=== PATIENT | female | born 1995 | race Caucasian/White ===

== ENCOUNTER 2016-06-05 23:21 | Emergency (ER) | payer OTHER ==
[~2016-06-05] VITALS: Ht 172.7 cm; Wt 104.8 kg
[~2016-06-05 23:21] MED LIST: ASCORBIC ACID500 M3 PO; AUGMENTIN875 MG PO; BENZONATATE200 MG; CLONIDINE; DESYREL12.5 MG; DIMETAPP DM CO PO; DOCUSATE SODIU100 MG PO; DOXYCYCLINE HY100 MG PO; DOXYCYCLINE MO100 M1 PO; FERROUS SULFAT325 MG PO; FLAGYL500 MG PO; FOCALIN XR20 MG; FOCALIN XR40 MG PO; GUAIFENESI100 MG/5 M PO; HYCODAN SYRUP480 ML PO; HYDROCODON-ACE1 EAC7 PO; IBUPROFEN800 MG PO; INTUNIV1 MG PO; INTUNIV3 MG; INTUNIV4 MG PO; MACROBID100 MG PO; MELATONIN3 MG PO; MIRTAZAPINE15 MG; MOBIC7.5 MG PO; MONISTAT 744 GM VG; MOTRIN800 MG PO; NAPROSYN500 MG PO; OXYCODONE-APAP1 EACH PO; PERCOCET 5/31 TABLET PO; POLYETHYLENE GL17 GM PO; PRENATAL TABLE1 EAC3 PO; PSEUDOEPHEDRINE30 MG PO; REMERON30 M2 PO; SINGULAIR10 MG PO; TAMIFLU75 MG PO; TRAMADOL HCL50 MG PO; TRAZODONE HCL50 MG PO; ULTRAM50 MG PO; ZANTAC150 MG PO; ZITHROMAX Z-PA250 MG PO; ZOFRAN4 MG PO
[2016-06-06 00:47] LABS: HEMATOCRIT 36.9 % (36.0-46.0); MCH 27.5 PG (29.0-34.0); MCHC 33.1 G/DL (30.0-36.0); MCV 83.1 FL (83-99); MEAN PLAT.VOLUME 10.3 uM^3 (9.5-12.4); PLATELET COUNT 257 K/uL (156-360); RBC DIS.WIDTH-CV 14.3 % (11.8-14.6); RBC DIS.WIDTH-SD 42.8 % (39-53); RED BLOOD COUNT 4.44 M/uL (3.80-5.20)
[2016-06-06 00:59] LABS: CHLORIDE 109 mEq/L (99-109); POTASSIUM 3.4 mEq/L (3.7-5.4); SODIUM 141 mEq/L (136-147)
[2016-06-06 01:01] LABS: GLUCOSE 99 mg/dL (70-99)
[2016-06-06 01:03] LABS: ANION GAP 7 MEQ/L (2-14); TOTAL BILIRUBIN 0.4 mg/dL (0.0-1.0)
[2016-06-06 01:05] LABS: ALKALINE PHOSPHATASE 76 IU/L (3-129); GFR ESTIMATE (CALCULATED) > 59 mL/min/
[2016-06-06 01:06] LABS: UREA NITROGEN (BUN) 9 mg/dL (9-23)
[2016-06-06 01:14] LABS: QUANTITATIVE HCG < 4.0 MIU/ML
[2016-06-06 02:04] LABS: ADD MIUA? YES; BILIRUBIN NEGATIVE; BLOOD LARGE; COLOR YELLOW ((YELLOW)); GLUCOSE (STRIP) NEGATIVE; KETONES NEGATIVE; LEUKOCYTES NEGATIVE; NITRITE NEGATIVE; PROTEIN (STRIP) TRACE; SPECIFIC GRAVITY 1.041 (1.000-1.030); UROBILINOGEN 0.2 MG/DL (0.2-1.0)
[2016-06-06 02:26] LABS: EPITHELIAL CELLS 1+ /HPF; MUCUS NONE SEEN /LPF; RED BLOOD CELLS 0-5 /HPF (0-5); WHITE BLOOD CELLS 0-5 /HPF (0-5)
[2016-06-06 02:27] LABS: BACTERIA 1+ /HPF; CASTS NONE SEEN /LPF; CRYSTALS NONE SEEN; UCUL ADDED? NO
[2016-06-06] MEDS ORDERED: BENTYL20 MG PO (02:42)
[2016-06-06 02:47] VITALS: BP 130/75
== END 2016-06-06 02:47 | disposition home or self-care (01) ==
LOC: EME 23:21 → RME 23:21
PROVIDERS: Nurse Practitioner Family
DX: R10.30 Lower abdominal pain, unspecified (principal); R11.2 Nausea with vomiting, unspecified; R19.7 Diarrhea, unspecified
CPT/HCPCS: 76856; 80053; 81003; 84702; 85027; 99281; 99285; J0500

== ENCOUNTER → 2016-08-20 | Emergency (ER) | payer OTHER ==
[~2016-08-20] VITALS: Ht 172.7 cm; Wt 103.2 kg
[~2016-08-20] MED LIST changes: +BENTYL20 MG PO
[2016-08-20 22:06] VITALS: BP 121/94
== END | disposition left against medical advice (07) ==
LOC: EME 22:00
DX: L29.9 Pruritus, unspecified (principal); R23.8 Other skin changes; Z53.21 Procedure and treatment not carried out due to patient leaving prior to being seen by health care provider
CPT/HCPCS: 99281; 99282

== ENCOUNTER 2016-10-30 14:37 | Emergency (ER) | payer OTHER ==
[~2016-10-30] VITALS: Ht 172.7 cm; Wt 102.6 kg
[2016-10-30 15:13] LABS: HEMATOCRIT 39.9 % (36.0-46.0); MCH 28.5 PG (29.0-34.0); MCHC 33.3 G/DL (30.0-36.0); MCV 85.6 FL (83-99); MEAN PLAT.VOLUME 10.3 uM^3 (9.5-12.4); PLATELET COUNT 286 K/uL (156-360); RBC DIS.WIDTH-CV 13.8 % (11.8-14.6); RBC DIS.WIDTH-SD 42.6 % (39-53); RED BLOOD COUNT 4.66 M/uL (3.80-5.20)
[2016-10-30 15:21] LABS: CHLORIDE 108 mEq/L (99-109); POTASSIUM 3.8 mEq/L (3.7-5.4); SODIUM 139 mEq/L (136-147)
[2016-10-30 15:24] LABS: GLUCOSE 91 mg/dL (70-99)
[2016-10-30 15:25] LABS: ANION GAP 9 MEQ/L (2-14); TOTAL BILIRUBIN 0.6 mg/dL (0.0-1.0)
[2016-10-30 15:26] LABS: SERUM ETHYL ALCOHOL < 10 mg/dL
[2016-10-30 15:27] LABS: ALKALINE PHOSPHATASE 70 IU/L (3-129); GFR ESTIMATE (CALCULATED) > 59 mL/min/
[2016-10-30 15:28] LABS: UREA NITROGEN (BUN) 9 mg/dL (9-23)
[2016-10-30 15:59] LABS: ADD MIUA? YES; BILIRUBIN NEGATIVE; BLOOD NEGATIVE; COLOR YELLOW ((YELLOW)); GLUCOSE (STRIP) NEGATIVE; KETONES NEGATIVE; LEUKOCYTES NEGATIVE; NITRITE NEGATIVE; PROTEIN (STRIP) NEGATIVE; SPECIFIC GRAVITY 1.019 (1.000-1.030); UROBILINOGEN 0.2 MG/DL (0.2-1.0)
[2016-10-30 16:02] LABS: BACTERIA RARE /HPF; EPITHELIAL CELLS 1+ /HPF; MUCUS TRACE /LPF; RED BLOOD CELLS 0-5 /HPF (0-5); WHITE BLOOD CELLS 0-5 /HPF (0-5)
[2016-10-30 16:11] LABS: AMPHETAMINE NEGATIVE (500 ng/mL); BARBITURATES NEGATIVE (200 ng/mL); BENZODIAZEPINES NEGATIVE (150 ng/mL); COCAINE NEGATIVE (150 ng/mL); INTERNAL CONTROLS VALID? YES; METHADONE NEGATIVE (200 ng/mL); METHAMPHETAMINE NEGATIVE (500 ng/mL); OPIATES (MORPHINE) NEGATIVE (100 ng/mL); OXYCODONE NEGATIVE (100 ng/mL); PHENCYCLIDINE NEGATIVE (25 ng/mL); PROPOXYPHENE NEGATIVE (300 ng/mL); THC CANNABINOIDS NEGATIVE (50 ng/mL); TRICYCLIC ANTIDEPRESSANTS NEGATIVE (300 ng/mL)
[2016-10-30 16:13] LABS: QUANTITATIVE HCG 471.8 MIU/ML
[2016-10-30 16:30] VITALS: BP 156/93
== END 2016-10-30 16:30 | disposition home or self-care (01) ==
LOC: EME 14:37
PROVIDERS: Emergency Medicine
DX: F32.9 Major depressive disorder, single episode, unspecified (principal); F41.9 Anxiety disorder, unspecified; Z04.6 Encounter for general psychiatric examination, requested by authority
CPT/HCPCS: 80053; 81003; 84702; 85027; 90839; 99281; 99284; G0480

== ENCOUNTER 2016-11-03 03:19 | Emergency (ER) | payer OTHER ==
[~2016-11-03] VITALS: Ht 172.7 cm; Wt 102.2 kg
[2016-11-03 03:59] LABS: HEMATOCRIT 38.4 % (36.0-46.0); MCH 28.4 PG (29.0-34.0); MCHC 33.9 G/DL (30.0-36.0); MCV 83.8 FL (83-99); MEAN PLAT.VOLUME 10.4 uM^3 (9.5-12.4); PLATELET COUNT 267 K/uL (156-360); RBC DIS.WIDTH-CV 14.1 % (11.8-14.6); RBC DIS.WIDTH-SD 42.8 % (39-53); RED BLOOD COUNT 4.58 M/uL (3.80-5.20); WHITE BLOOD COUNT 23.7 K/uL (4.1-10.2)
[2016-11-03 04:08] LABS: CHLORIDE 107 mEq/L (99-109); POTASSIUM 3.5 mEq/L (3.7-5.4); SODIUM 136 mEq/L (136-147)
[2016-11-03 04:10] LABS: GLUCOSE 104 mg/dL (70-99)
[2016-11-03 04:11] LABS: ANION GAP 9 MEQ/L (2-14)
[2016-11-03 04:12] LABS: TOTAL BILIRUBIN 1.3 mg/dL (0.0-1.0)
[2016-11-03 04:13] LABS: ALKALINE PHOSPHATASE 80 IU/L (3-129)
[2016-11-03 04:14] LABS: GFR ESTIMATE (CALCULATED) > 59 mL/min/
[2016-11-03 04:15] LABS: UREA NITROGEN (BUN) 6 mg/dL (9-23)
[2016-11-03 04:24] LABS: QUANTITATIVE HCG 2383.8 MIU/ML
[2016-11-03 05:08] LABS: LIPASE 8 U/L (1.0-51.0)
[2016-11-03 05:50] LABS: ADD MIUA? YES; BILIRUBIN NEGATIVE; BLOOD NEGATIVE; COLOR YELLOW ((YELLOW)); GLUCOSE (STRIP) NEGATIVE; KETONES NEGATIVE; LEUKOCYTES NEGATIVE; NITRITE NEGATIVE; PROTEIN (STRIP) NEGATIVE; SPECIFIC GRAVITY 1.019 (1.000-1.030)
[2016-11-03 06:15] LABS: BACTERIA RARE /HPF; EPITHELIAL CELLS 1+ /HPF; MUCUS TRACE /LPF; UCUL ADDED? NO; WHITE BLOOD CELLS 0-5 /HPF (0-5)
[2016-11-03] MEDS ORDERED: ZOFRAN8 MG PO (06:38)
[2016-11-03 07:02] VITALS: BP 105/66
== END 2016-11-03 07:20 | disposition home or self-care (01) ==
LOC: EME 03:19
DX: O21.9 Vomiting of pregnancy, unspecified (principal); O99.281 Endocrine, nutritional and metabolic diseases complicating pregnancy, first trimester; E86.0 Dehydration; D72.829 Elevated white blood cell count, unspecified; R10.84 Generalized abdominal pain; M54.9 Dorsalgia, unspecified; R07.9 Chest pain, unspecified; R00.0 Tachycardia, unspecified; Z3A.00 Weeks of gestation of pregnancy not specified
CPT/HCPCS: 76801; 80053; 81003; 83690; 84702; 85027; 86900; 86901; 99281; 99284; J2405; J7030

== ENCOUNTER 2016-11-22 09:26 | Emergency (ER) | payer OTHER ==
[~2016-11-22] VITALS: Ht 172.7 cm; Wt 101.8 kg
[~2016-11-22 09:26] MED LIST changes: +ZOFRAN8 MG PO
[2016-11-22 11:34] LABS: ADD MIUA? YES; BILIRUBIN NEGATIVE; BLOOD NEGATIVE; COLOR YELLOW ((YELLOW)); GLUCOSE (STRIP) NEGATIVE; KETONES 80; LEUKOCYTES NEGATIVE; NITRITE NEGATIVE; PROTEIN (STRIP) 30; SPECIFIC GRAVITY 1.027 (1.000-1.030); UROBILINOGEN 0.2 MG/DL (0.2-1.0)
[2016-11-22 12:06] LABS: BACTERIA RARE /HPF; EPITHELIAL CELLS 2+ /HPF; HYALINE CASTS 0-5 /LPF; MUCUS 2+ /LPF; RED BLOOD CELLS 0-5 /HPF (0-5); UCUL ADDED? NO; WHITE BLOOD CELLS 0-5 /HPF (0-5)
[2016-11-22 14:29] VITALS: BP 104/64
== END 2016-11-22 14:42 | disposition home or self-care (01) ==
LOC: EME 09:26
PROVIDERS: Emergency Medicine
DX: R11.2 Nausea with vomiting, unspecified (principal)
CPT/HCPCS: 81003; 84702; 99281; 99284

== ENCOUNTER 2016-12-26 18:34 | Emergency (ER) | payer OTHER ==
[~2016-12-26] VITALS: Ht 167.6 cm; Wt 102.9 kg
[2016-12-26 18:45] VITALS: BP 122/68
== END 2016-12-26 20:39 | disposition left against medical advice (07) ==
LOC: EME 18:34
DX: O26.851 Spotting complicating pregnancy, first trimester (principal); R07.9 Chest pain, unspecified; R42 Dizziness and giddiness; Z3A.13 13 weeks gestation of pregnancy; Z53.21 Procedure and treatment not carried out due to patient leaving prior to being seen by health care provider
CPT/HCPCS: 93005

== ENCOUNTER 2017-02-17 21:01 | Outpatient (CLI) | payer OTHER ==
[2017-02-17 21:11] VITALS: BP 108/55
[2017-02-17] MEDS ORDERED: PRENATAL GUMMI1 EACH PO (22:18)
[2017-02-17 23:04] LABS: AMPHETAMINE NEGATIVE (500 ng/mL); BARBITURATES NEGATIVE (200 ng/mL); BENZODIAZEPINES NEGATIVE (150 ng/mL); COCAINE NEGATIVE (150 ng/mL); INTERNAL CONTROLS VALID? YES; METHADONE NEGATIVE (200 ng/mL); METHAMPHETAMINE NEGATIVE (500 ng/mL); OPIATES (MORPHINE) NEGATIVE (100 ng/mL); OXYCODONE NEGATIVE (100 ng/mL); PHENCYCLIDINE NEGATIVE (25 ng/mL); PROPOXYPHENE NEGATIVE (300 ng/mL); THC CANNABINOIDS NEGATIVE (50 ng/mL); TRICYCLIC ANTIDEPRESSANTS NEGATIVE (300 ng/mL)
== END 2017-02-17 22:20 | disposition home or self-care (01) ==
LOC: LDRP-OP 21:01 → 2WEST 21:03
PROVIDERS: Advanced Practice Midwife
DX: O26.892 Other specified pregnancy related conditions, second trimester (principal); R10.9 Unspecified abdominal pain; O99.342 Other mental disorders complicating pregnancy, second trimester; F90.9 Attention-deficit hyperactivity disorder, unspecified type; O99.352 Diseases of the nervous system complicating pregnancy, second trimester; G47.00 Insomnia, unspecified; O30.042 Twin pregnancy, dichorionic/diamniotic, second trimester; O34.219 Maternal care for unspecified type scar from previous cesarean delivery; Z3A.20 20 weeks gestation of pregnancy
CPT/HCPCS: G0378

== ENCOUNTER 2017-03-14 17:02 | Outpatient (CLI) | payer OTHER ==
[~2017-03-14 17:02] MED LIST changes: +PRENATAL GUMMI1 EACH PO
[2017-03-14 17:29] VITALS: BP 117/59
== END 2017-03-14 18:30 | disposition home or self-care (01) ==
LOC: LDRP-OP 17:02 → 2WEST 17:05 → LDRP-OP 08-04 22:35
DX: O36.8120 Decreased fetal movements, second trimester, not applicable or unspecified (principal); O30.042 Twin pregnancy, dichorionic/diamniotic, second trimester; O34.219 Maternal care for unspecified type scar from previous cesarean delivery; Z3A.24 24 weeks gestation of pregnancy
CPT/HCPCS: 59025; G0378

== ENCOUNTER 2017-03-21 00:28 | Outpatient (CLI) | payer OTHER ==
[~2017-03-21] VITALS: Ht 168.9 cm; Wt 105.0 kg
[2017-03-21 00:37] VITALS: BP 132/60
[2017-03-21 00:53] VITALS: BP 122/60
[2017-03-21 01:43] LABS: ADD MIUA? YES; BILIRUBIN NEGATIVE; BLOOD NEGATIVE; COLOR YELLOW ((YELLOW)); GLUCOSE (STRIP) NEGATIVE; KETONES NEGATIVE; LEUKOCYTES TRACE; NITRITE NEGATIVE; PROTEIN (STRIP) 30; SPECIFIC GRAVITY 1.024 (1.000-1.030)
[2017-03-21] MEDS ORDERED: ASPIRIN81 M2 PO (01:43)
[2017-03-21 01:57] LABS: BACTERIA 2+ /HPF; CASTS NONE SEEN /LPF; CRYSTALS NONE SEEN; EPITHELIAL CELLS 2+ /HPF; MUCUS 3+ /LPF; RED BLOOD CELLS 0-5 /HPF (0-5); UCUL ADDED? YES; WHITE BLOOD CELLS 0-5 /HPF (0-5)
== END 2017-03-21 02:35 | disposition home or self-care (01) ==
LOC: LDRP-OP 00:28 → 2WEST 00:29 → LDRP-OP 08-04 22:00
PROVIDERS: Advanced Practice Midwife
DX: O26.892 Other specified pregnancy related conditions, second trimester (principal); M25.552 Pain in left hip; M25.551 Pain in right hip; O30.042 Twin pregnancy, dichorionic/diamniotic, second trimester; Z3A.25 25 weeks gestation of pregnancy
CPT/HCPCS: 59025; 81003; 87086; G0378

== ENCOUNTER 2017-04-16 20:38 | Outpatient (CLI) | payer OTHER ==
[~2017-04-16 20:38] MED LIST changes: +ASPIRIN81 M2 PO
[2017-04-16 20:50] VITALS: BP 140/86
[2017-04-16 21:57] LABS: ADD MIUA? YES; BILIRUBIN NEGATIVE; BLOOD SMALL; COLOR YELLOW ((YELLOW)); GLUCOSE (STRIP) NEGATIVE; KETONES NEGATIVE; LEUKOCYTES NEGATIVE; NITRITE NEGATIVE; PROTEIN (STRIP) >=500; UROBILINOGEN 0.2 MG/DL (0.2-1.0)
[2017-04-16 22:26] LABS: AMPHETAMINE NEGATIVE (500 ng/mL); BACTERIA 1+ /HPF; BARBITURATES NEGATIVE (200 ng/mL); BENZODIAZEPINES NEGATIVE (150 ng/mL); CASTS PRESENT /LPF; COCAINE NEGATIVE (150 ng/mL); CRYSTALS NONE SEEN; EPITHELIAL CELLS 1+ /HPF; FINE GRANULAR CASTS 0-5 /LPF; HYALINE CASTS 0-5 /LPF; METHADONE NEGATIVE (200 ng/mL); METHAMPHETAMINE NEGATIVE (500 ng/mL); MUCUS 3+ /LPF; OPIATES (MORPHINE) NEGATIVE (100 ng/mL); OXYCODONE NEGATIVE (100 ng/mL); PHENCYCLIDINE NEGATIVE (25 ng/mL); PROPOXYPHENE NEGATIVE (300 ng/mL); THC CANNABINOIDS NEGATIVE (50 ng/mL); TRICYCLIC ANTIDEPRESSANTS NEGATIVE (300 ng/mL); UCUL ADDED? NO; WHITE BLOOD CELLS 0-5 /HPF (0-5)
[2017-04-16 22:27] LABS: INTERNAL CONTROLS VALID? YES
[2017-04-16 23:05] VITALS: BP 145/80
[2017-04-16 23:50] LABS: EOSINOPHIL (%) 1.1 % (0-5); EOSINOPHIL COUNT 0.1 K/uL (0-0.3); HEMATOCRIT 27.2 % (36.0-46.0); IMMATURE GRANULOCYTE (%) 0.6 % (0.0-0.7); IMMATURE GRANULOCYTE COUNT 0.1 K/uL; INSTRUMENT ABS NEUTROPHIL CT 8.4 K/uL; LYMPHOCYTE COUNT 2.7 K/uL (1.0-2.8); MCH 27.6 PG (29.0-34.0); MCHC 33.5 G/DL (30.0-36.0); MCV 82.4 FL (83-99); MEAN PLAT.VOLUME 13.4 uM^3 (9.5-12.4); MONOCYTE (%) 4.6 % (3-12); MONOCYTE COUNT 0.6 K/uL (0-0.8); NEUTROPHIL (%) 70.5 % (45-76); NEUTROPHIL COUNT 8.4 K/uL (1.8-6.4); NRBC (%) 0.2 /100 WBC (0-0); PLATELET COUNT 169 K/uL (156-360); RBC DIS.WIDTH-CV 13.3 % (11.8-14.6); RBC DIS.WIDTH-SD 40.2 % (39-53); WHITE BLOOD COUNT 11.9 K/uL (4.1-10.2)
[2017-04-17 00:02] LABS: CHLORIDE 108 mEq/L (99-109); POTASSIUM 3.7 mEq/L (3.7-5.4); SODIUM 137 mEq/L (136-147)
[2017-04-17 00:04] LABS: GLUCOSE 98 mg/dL (70-99)
[2017-04-17 00:05] LABS: ANION GAP 10 MEQ/L (2-14)
[2017-04-17 00:06] LABS: TOTAL BILIRUBIN 0.6 mg/dL (0.0-1.0)
[2017-04-17 00:07] VITALS: BP 137/76
[2017-04-17 00:08] LABS: ALKALINE PHOSPHATASE 124 IU/L (3-129); GFR ESTIMATE (CALCULATED) > 59 mL/min/
[2017-04-17 00:09] LABS: UREA NITROGEN (BUN) 10 mg/dL (9-23)
[2017-04-17 01:52] LABS: ADD MIUA? YES; BILIRUBIN NEGATIVE; BLOOD TRACE; COLOR STRAW ((YELLOW)); GLUCOSE (STRIP) NEGATIVE; KETONES NEGATIVE; LEUKOCYTES NEGATIVE; NITRITE NEGATIVE; PH, URINE 6.5 (5-8); PROTEIN (STRIP) 300; SPECIFIC GRAVITY 1.015 (1.000-1.030); UROBILINOGEN 0.2 MG/DL (0.2-1.0)
[2017-04-17 03:10] LABS: UR CREATININE CONCENTRATION 124.6 MG/DL
[2017-04-17 04:33] LABS: CANDIDA DNA PROBE POSITIVE; GARDNERELLA DNA PROBE POSITIVE; INTERNAL CONTROL VALID? YES
[2017-04-18 14:24] LABS: CHLAMYDIA TRACHOMATIS NEGATIVE; NEISSERIA GONORRHOEAE NEGATIVE
== END 2017-04-17 02:15 | disposition left against medical advice (07) ==
LOC: LDRP-OP 20:38 → 2WEST 20:43 → LDRP-OP 08-04 02:42
PROVIDERS: Advanced Practice Midwife; Obstetrics & Gynecology
DX: O26.893 Other specified pregnancy related conditions, third trimester (principal); R10.9 Unspecified abdominal pain; N89.8 Other specified noninflammatory disorders of vagina; L29.2 Pruritus vulvae; O30.043 Twin pregnancy, dichorionic/diamniotic, third trimester; Z3A.28 28 weeks gestation of pregnancy; O34.219 Maternal care for unspecified type scar from previous cesarean delivery; Z53.29 Procedure and treatment not carried out because of patient's decision for other reasons
CPT/HCPCS: 59025; 80053; 81003; 82570; 84156; 85025; 87086; 87480; 87491; 87510; 87591; 87660; G0378; J7120

== ENCOUNTER 2017-04-19 22:58 | Inpatient (IN) | payer OTHER ==
[~2017-04-19] VITALS: Ht 167.6 cm; Wt 114.5 kg
[2017-04-19 23:52] LABS: EOSINOPHIL (%) 0.7 % (0-5); EOSINOPHIL COUNT 0.1 K/uL (0-0.3); HEMATOCRIT 29.6 % (36.0-46.0); IMMATURE GRANULOCYTE (%) 0.5 % (0.0-0.7); IMMATURE GRANULOCYTE COUNT 0.1 K/uL; INSTRUMENT ABS NEUTROPHIL CT 10.6 K/uL; LYMPHOCYTE COUNT 1.9 K/uL (1.0-2.8); MCH 27.1 PG (29.0-34.0); MCHC 32.4 G/DL (30.0-36.0); MCV 83.6 FL (83-99); MEAN PLAT.VOLUME 13.1 uM^3 (9.5-12.4); MONOCYTE (%) 5.3 % (3-12); MONOCYTE COUNT 0.7 K/uL (0-0.8); NEUTROPHIL COUNT 10.6 K/uL (1.8-6.4); NRBC (%) 0.1 /100 WBC (0-0); PLATELET COUNT 151 K/uL (156-360); RBC DIS.WIDTH-CV 13.8 % (11.8-14.6); RBC DIS.WIDTH-SD 41.7 % (39-53); RED BLOOD COUNT 3.54 M/uL (3.80-5.20); WHITE BLOOD COUNT 13.5 K/uL (4.1-10.2)
[2017-04-20] VITALS (24 sets, daily range): BP systolic 124–173; BP diastolic 70–99
[2017-04-20] LABS: CHLORIDE 110 mEq/L (99-109); POTASSIUM 3.8 mEq/L (3.7-5.4); SODIUM 137 mEq/L (136-147)
[2017-04-20 00:02] LABS: GLUCOSE 71 mg/dL (70-99)
[2017-04-20 00:04] LABS: ANION GAP 9 MEQ/L (2-14)
[2017-04-20 00:05] LABS: TOTAL BILIRUBIN 0.9 mg/dL (0.0-1.0)
[2017-04-20 00:06] LABS: ALKALINE PHOSPHATASE 133 IU/L (3-129); GFR ESTIMATE (CALCULATED) > 59 mL/min/
[2017-04-20 00:07] LABS: UREA NITROGEN (BUN) 10 mg/dL (9-23)
[2017-04-20 03:10] LABS: UR CREATININE CONCENTRATION 319.1 MG/DL
[2017-04-20 04:08] LABS: LACTATE DEHYDROGENASE 270 IU/L (20-246)
[2017-04-20 04:55] LABS: AMPHETAMINES QUANT VALUE 0 NG/ML; BARBITUATES QUANT VALUE 0 NG/ML; BENZODIAZEPINES QUANT VALUE 0 NG/ML; BENZODIAZEPINES, URINE SCREEN Negative (200 ng/mL); MARIJUANA QUANT VALUE 0 NG/ML; OPIATES QUANTITATIVE VALUE 0 NG/ML; PHENCYCLIDINE QUANT VALUE 0 NG/ML
[2017-04-21] VITALS (17 sets, daily range): BP systolic 121–164; BP diastolic 57–97
[2017-04-21 03:30] LABS: HEMATOCRIT 28.1 % (36.0-46.0); MCH 27.3 PG (29.0-34.0); MCHC 32.4 G/DL (30.0-36.0); MCV 84.4 FL (83-99); NRBC (%) 0.2 /100 WBC (0-0); PLATELET COUNT 146 K/uL (156-360); RBC DIS.WIDTH-SD 41.3 % (39-53); RED BLOOD COUNT 3.33 M/uL (3.80-5.20); WHITE BLOOD COUNT 14.9 K/uL (4.1-10.2)
[2017-04-21 03:39] LABS: CHLORIDE 111 mEq/L (99-109); POTASSIUM 4.2 mEq/L (3.7-5.4); SODIUM 137 mEq/L (136-147)
[2017-04-21 03:42] LABS: ANION GAP 7 MEQ/L (2-14)
[2017-04-21 03:45] LABS: ALKALINE PHOSPHATASE 123 IU/L (3-129); GFR ESTIMATE (CALCULATED) > 59 mL/min/
[2017-04-21 03:46] LABS: UREA NITROGEN (BUN) 10 mg/dL (9-23)
[2017-04-21 03:48] LABS: URIC ACID 5.6 mg/dL (3.1-9.2)
[2017-04-21 03:50] LABS: GLUCOSE 106 mg/dL (70-99); TOTAL BILIRUBIN 0.4 mg/dL (0.0-1.0)
[2017-04-21 05:30] LABS: LACTATE DEHYDROGENASE 193 IU/L (20-246); SAMPLE HEMOLYSIS CHECK 0; SAMPLE ICTERIC CHECK 0; SAMPLE LIPEMIA CHECK 0
[2017-04-21 09:27] LABS: UR CREATININE CONCENTRATION 200.6 MG/DL
[2017-04-22 03:13] VITALS: BP 139/75
[2017-04-22 07:45] VITALS: BP 150/79
[2017-04-22 11:43] VITALS: BP 158/101
[2017-04-22 11:57] LABS: ADD MIUA? YES; BILIRUBIN NEGATIVE; BLOOD NEGATIVE; COLOR YELLOW ((YELLOW)); GLUCOSE (STRIP) NEGATIVE; KETONES NEGATIVE; LEUKOCYTES TRACE; NITRITE NEGATIVE; PROTEIN (STRIP) 100; SPECIFIC GRAVITY 1.011 (1.000-1.030); UROBILINOGEN 0.2 MG/DL (0.2-1.0)
[2017-04-22 12:05] LABS: BACTERIA RARE /HPF; EPITHELIAL CELLS 1+ /HPF; HYALINE CASTS 0-5 /LPF; MUCUS TRACE /LPF; RED BLOOD CELLS 0-5 /HPF (0-5); WHITE BLOOD CELLS 0-5 /HPF (0-5)
[2017-04-22 16:06] VITALS: BP 138/83
[2017-04-22 19:41] VITALS: BP 150/71
[2017-04-23] VITALS (7 sets, daily range): BP systolic 141–170; BP diastolic 67–97
[2017-04-23 06:48] LABS: EOSINOPHIL (%) 0.4 % (0-5); EOSINOPHIL COUNT 0.1 K/uL (0-0.3); IMMATURE GRANULOCYTE (%) 1.9 % (0.0-0.7); IMMATURE GRANULOCYTE COUNT 0.3 K/uL; INSTRUMENT ABS NEUTROPHIL CT 9.8 K/uL; LYMPHOCYTE COUNT 2.5 K/uL (1.0-2.8); MCH 27.2 PG (29.0-34.0); MCHC 31.8 G/DL (30.0-36.0); MCV 85.6 FL (83-99); MEAN PLAT.VOLUME 13.5 uM^3 (9.5-12.4); MONOCYTE (%) 5.6 % (3-12); MONOCYTE COUNT 0.8 K/uL (0-0.8); NEUTROPHIL (%) 73.2 % (45-76); NEUTROPHIL COUNT 9.8 K/uL (1.8-6.4); NRBC (%) 1.1 /100 WBC (0-0); PLATELET COUNT 147 K/uL (156-360); RBC DIS.WIDTH-CV 14.8 % (11.8-14.6); RBC DIS.WIDTH-SD 43.5 % (39-53); RED BLOOD COUNT 3.27 M/uL (3.80-5.20); WHITE BLOOD COUNT 13.3 K/uL (4.1-10.2)
[2017-04-23 07:09] LABS: ALKALINE PHOSPHATASE 104 IU/L (3-129); ANION GAP 8 MEQ/L (2-14); C3 COMPLEMENT 145 MG/DL (58-170); C4 COMPLEMENT 10 MG/DL (10-40); CHLORIDE 107 MEQ/L (99-109); GFR ESTIMATE (CALCULATED) > 59 mL/min/; GLUCOSE 84 mg/dL (70-99); POTASSIUM 3.9 MEQ/L (3.7-5.4); SAMPLE HEMOLYSIS CHECK 0; SAMPLE ICTERIC CHECK 0; SAMPLE LIPEMIA CHECK 0; SODIUM 138 MEQ/L (136-147); TOTAL BILIRUBIN 0.5 MG/DL (0.0-1.0); UREA NITROGEN (BUN) 7 mg/dL (9-23)
[2017-04-23 10:35] LABS: HPCA INDEX 0.18
[2017-04-25 11:21] LABS: GLOMERULAR BASEMENT MEMB ABY+ <1.0 AI (<1.0)
[2017-04-25 13:24] LABS: Neutrophil Cytoplasmic Aby Negative (Negative)
== END 2017-04-23 16:52 | disposition short-term general hospital (02) | DRG 781 ==
LOC: LDRP-OP 22:58 → 2WEST 22:59 → LDRP-OP 08-04 02:29
PROVIDERS: Advanced Practice Midwife; Internal Medicine Nephrology; Obstetrics & Gynecology
DX: O14.93 Unspecified pre-eclampsia, third trimester (principal); O13.3 Gestational [pregnancy-induced] hypertension without significant proteinuria, third trimester; O30.043 Twin pregnancy, dichorionic/diamniotic, third trimester; O99.213 Obesity complicating pregnancy, third trimester; Z3A.29 29 weeks gestation of pregnancy; O99.343 Other mental disorders complicating pregnancy, third trimester; E66.9 Obesity, unspecified; B37.3 Candidiasis of vulva and vagina; F41.9 Anxiety disorder, unspecified; O99.013 Anemia complicating pregnancy, third trimester; D64.9 Anemia, unspecified; O98.813 Other maternal infectious and parasitic diseases complicating pregnancy, third trimester; G47.00 Insomnia, unspecified; D69.6 Thrombocytopenia, unspecified; O99.113 Other diseases of the blood and blood-forming organs and certain disorders involving the immune mechanism complicating pregnancy, third trimester; E88.09 Other disorders of plasma-protein metabolism, not elsewhere classified; O99.283 Endocrine, nutritional and metabolic diseases complicating pregnancy, third trimester
CPT/HCPCS: 76770; 76805; 76810; 76818; 80053; 80306 90; 81003; 81050; 82570; 82575; 83520 90; 83615; 84156; 84550; 85025; 85027; 86021 90; 86038; 86160; 86803; 86850; 86900; 86901; 93005; G0378; J0702; J3475; J7120; Q0177

== ENCOUNTER 2017-04-27 15:53 | Inpatient (IN) | payer OTHER ==
[~2017-04-27] VITALS: Ht 167.6 cm; Wt 95.5 kg
[2017-04-27 17:45] LABS: EOSINOPHIL (%) 0.7 % (0-5); EOSINOPHIL COUNT 0.1 K/uL (0-0.3); IMMATURE GRANULOCYTE (%) 1.1 % (0.0-0.7); IMMATURE GRANULOCYTE COUNT 0.2 K/uL; INSTRUMENT ABS NEUTROPHIL CT 12.7 K/uL; LYMPHOCYTE COUNT 1.2 K/uL (1.0-2.8); MCH 29.7 PG (29.0-34.0); MCHC 32.8 G/DL (30.0-36.0); MEAN PLAT.VOLUME 11.8 uM^3 (9.5-12.4); MONOCYTE (%) 4.1 % (3-12); MONOCYTE COUNT 0.6 K/uL (0-0.8); NEUTROPHIL (%) 85.9 % (45-76); NEUTROPHIL COUNT 12.7 K/uL (1.8-6.4); NRBC (%) 0.4 /100 WBC (0-0); PLATELET COUNT 146 K/uL (156-360); RBC DIS.WIDTH-CV 17.9 % (11.8-14.6); RBC DIS.WIDTH-SD 50.1 % (39-53); RED BLOOD COUNT 2.76 M/uL (3.80-5.20); WHITE BLOOD COUNT 14.8 K/uL (4.1-10.2)
[2017-04-27 17:46] LABS: MCV 90.6 FL (83-99)
[2017-04-27 17:50] LABS: PROTHROMBIN TIME 11.4 SEC (10.2-12.9)
[2017-04-27 17:53] LABS: PTT 27.2 SEC (25-37)
[2017-04-27 17:55] LABS: CHLORIDE 106 mEq/L (99-109); SODIUM 137 mEq/L (136-147)
[2017-04-27 17:58] LABS: GLUCOSE 85 mg/dL (70-99)
[2017-04-27 17:59] LABS: ANION GAP 8 MEQ/L (2-14)
[2017-04-27 18:01] LABS: ALKALINE PHOSPHATASE 109 IU/L (3-129); GFR ESTIMATE (CALCULATED) > 59 mL/min/
[2017-04-27 18:02] LABS: UREA NITROGEN (BUN) 9 mg/dL (9-23)
[2017-04-27 18:05] LABS: LIPASE 12 U/L (1.0-51.0)
[2017-04-27 18:07] LABS: POTASSIUM 4.7 mEq/L (3.7-5.4)
[2017-04-27 18:14] LABS: ADD MIUA? YES; BILIRUBIN NEGATIVE; BLOOD LARGE; COLOR YELLOW ((YELLOW)); GLUCOSE (STRIP) NEGATIVE; KETONES NEGATIVE; LEUKOCYTES MODERATE; NITRITE NEGATIVE; PROTEIN (STRIP) 100; SPECIFIC GRAVITY 1.008 (1.000-1.030); UROBILINOGEN 0.2 MG/DL (0.2-1.0)
[2017-04-27 18:19] LABS: BACTERIA NONE SEEN /HPF; EPITHELIAL CELLS RARE /HPF; MUCUS TRACE /LPF; RED BLOOD CELLS TNTC /HPF (0-5); WHITE BLOOD CELLS 20-30 /HPF (0-5)
[2017-04-27 20:10] VITALS: BP 183/97
[2017-04-27 21:11] VITALS: BP 176/86
[2017-04-27 22:17] VITALS: BP 156/93
[2017-04-27 22:20] VITALS: BP 156/93
[2017-04-27 23:25] VITALS: BP 160/90
[2017-04-28] VITALS (15 sets, daily range): BP systolic 121–168; BP diastolic 61–92
[2017-04-28 06:17] LABS: EOSINOPHIL COUNT 0.2 K/uL (0-0.3); HEMATOCRIT 25.1 % (36.0-46.0); IMMATURE GRANULOCYTE (%) 1.7 % (0.0-0.7); IMMATURE GRANULOCYTE COUNT 0.3 K/uL; INSTRUMENT ABS NEUTROPHIL CT 10.9 K/uL; LYMPHOCYTE COUNT 2.4 K/uL (1.0-2.8); MCH 29.2 PG (29.0-34.0); MCHC 32.3 G/DL (30.0-36.0); MCV 90.6 FL (83-99); MEAN PLAT.VOLUME 11.6 uM^3 (9.5-12.4); MONOCYTE (%) 6.2 % (3-12); MONOCYTE COUNT 0.9 K/uL (0-0.8); NEUTROPHIL (%) 74.3 % (45-76); NEUTROPHIL COUNT 10.9 K/uL (1.8-6.4); NRBC (%) 0.5 /100 WBC (0-0); PLATELET COUNT 179 K/uL (156-360); RBC DIS.WIDTH-CV 17.9 % (11.8-14.6); RBC DIS.WIDTH-SD 51.4 % (39-53); RED BLOOD COUNT 2.77 M/uL (3.80-5.20); WHITE BLOOD COUNT 14.7 K/uL (4.1-10.2)
[2017-04-28 06:46] LABS: ALKALINE PHOSPHATASE 89 IU/L (3-129); ANION GAP 10 MEQ/L (2-14); CHLORIDE 105 MEQ/L (99-109); GFR ESTIMATE (CALCULATED) > 59 mL/min/; GLUCOSE 84 mg/dL (70-99); POTASSIUM 3.9 MEQ/L (3.7-5.4); SAMPLE HEMOLYSIS CHECK 0; SAMPLE ICTERIC CHECK 0; SAMPLE LIPEMIA CHECK 0; SODIUM 140 MEQ/L (136-147); UREA NITROGEN (BUN) 8 mg/dL (9-23)
[2017-04-28 07:01] LABS: TOTAL BILIRUBIN 1.1 MG/DL (0.0-1.0)
[2017-04-29 02:58] VITALS: BP 122/77
[2017-04-29 06:56] VITALS: BP 121/69
[2017-04-29 10:53] VITALS: BP 144/82
[2017-04-29] MEDS ORDERED: LORAZEPAM1 MG PO (11:40)
[2017-04-29] MEDS ORDERED: Procardia XL,Adalat PO (11:40)
[2017-04-29] MEDS ORDERED: HYDROCODON-ACE1 EAC7 PO (11:49)
== END 2017-04-29 12:38 | disposition home or self-care (01) | DRG 776 ==
LOC: EME 15:53 → 2WEST 19:47
PROVIDERS: Obstetrics & Gynecology; Physician Assistant
DX: O14.25 HELLP syndrome, complicating the puerperium (principal)
CPT/HCPCS: 74020; 80053; 81003; 83690; 85025; 85610; 85730; 86850; 86900; 86901; 99281; 99285; J0360; J7120

== ENCOUNTER 2017-08-12 14:51 | Emergency (ER) | payer OTHER ==
[~2017-08-12 14:51] MED LIST changes: +LORAZEPAM1 MG PO; +Procardia XL,Adalat PO
== END 2017-08-12 15:21 | disposition left against medical advice (07) ==
LOC: EME 14:51
DX: R07.9 Chest pain, unspecified (principal); Z53.21 Procedure and treatment not carried out due to patient leaving prior to being seen by health care provider

== ENCOUNTER 2017-08-14 09:27 | Emergency (ER) | payer OTHER ==
[~2017-08-14] VITALS: Ht 172.7 cm; Wt 100.9 kg
[2017-08-14 10:14] LABS: HEMATOCRIT 36.4 % (36.0-46.0); HEMOGLOBIN 11.8 G/DL (11.9-15.5); MCH 25.1 PG (29.0-34.0); MCHC 32.4 G/DL (30.0-36.0); MCV 77.4 FL (83-99); PLATELET COUNT 271 K/uL (156-360); RBC DIS.WIDTH-CV 16.4 % (11.8-14.6); RBC DIS.WIDTH-SD 46.4 % (39-53); WHITE BLOOD COUNT 16.5 K/uL (4.1-10.2)
[2017-08-14 10:23] LABS: ALBUMIN 4.2 g/dL (3.2-4.8); CHLORIDE 104 mEq/L (99-109); POTASSIUM 3.4 mEq/L (3.7-5.4); SODIUM 137 mEq/L (136-147)
[2017-08-14 10:25] LABS: GLUCOSE 98 mg/dL (70-99)
[2017-08-14 10:26] LABS: TOTAL PROTEIN 7.6 g/dL (6.4-8.3)
[2017-08-14 10:29] LABS: ALKALINE PHOSPHATASE 123 IU/L (3-129); CREATININE 0.7 mg/dL (0.6-1.3); GFR ESTIMATE (CALCULATED) > 59 mL/min/
[2017-08-14 10:30] LABS: UREA NITROGEN (BUN) 6 mg/dL (9-23)
[2017-08-14 10:31] LABS: AST (GOT) 47 IU/L (2-34)
[2017-08-14 10:32] LABS: ALT (GPT) 51 IU/L (3-49)
[2017-08-14 10:33] LABS: LIPASE 11 U/L (1.0-51.0)
[2017-08-14 10:39] LABS: QUANTITATIVE HCG < 4.0 MIU/ML
[2017-08-14] MEDS ORDERED: CIPRO500 MG PO (12:22)
[2017-08-14] MEDS ORDERED: FLAGYL500 MG PO (12:22)
[2017-08-14 13:17] LABS: APPEARANCE CLEAR ((CLEAR)); BILIRUBIN NEGATIVE; BLOOD SMALL; COLOR YELLOW ((YELLOW)); GLUCOSE (STRIP) NEGATIVE; KETONES NEGATIVE; LEUKOCYTES NEGATIVE; NITRITE NEGATIVE; PROTEIN (STRIP) 30; UROBILINOGEN 0.2 MG/DL (0.2-1.0)
[2017-08-14 13:24] LABS: SPECIFIC GRAVITY > 1.060 (1.000-1.030)
[2017-08-14 13:29] LABS: BACTERIA RARE /HPF; EPITHELIAL CELLS 1+ /HPF; MUCUS TRACE /LPF; RED BLOOD CELLS 0-5 /HPF (0-5); UCUL ADDED? NO; WHITE BLOOD CELLS 0-5 /HPF (0-5)
[2017-08-14] MEDS ORDERED: ZOFRAN4 MG SL (13:33)
[2017-08-14] MEDS ORDERED: BENTYL10 MG PO (13:33)
[2017-08-14 13:57] VITALS: BP 107/72
== END 2017-08-14 13:58 | disposition left against medical advice (07) ==
LOC: EME 09:27
DX: K52.9 Noninfective gastroenteritis and colitis, unspecified (principal); R51 Headache; R00.0 Tachycardia, unspecified; Z53.29 Procedure and treatment not carried out because of patient's decision for other reasons
CPT/HCPCS: 74177; 80053; 81003; 83690; 84702; 85027; 99281; 99284; J1885; J2405; J7030